=== PATIENT | female | born 1990 | race Caucasian/White ===

== ENCOUNTER 2019-07-05 12:49 | Observation (INO) ==
[2019-07-05] MEDS ORDERED: Ringers Solution, Lactated 1,000 ML IVC SCH (13:00)
[2019-07-05 15:53] LABS: Bilirubin,Urine Negative (Negative); Blood,Urine Negative (Negative); Clarity,Urine Cloudy (Clear); Color,Urine Yellow (Yellow); Glucose,Urine (UA) Normal (Normal); Ketones,Urine 15 mg/dL (Negative); Leukocyte Esterase,Urine Trace (Negative); Nitrite,Urine Negative (Negative); Protein,Urine Negative (Neg-Trace); Specific Gravity,Urine 1.012 (1.010-1.025); Urobilinogen,Urine Normal (Normal)
[2019-07-05 15:58] LABS: Bacteria,Urine None Seen per hpf (None-Few); Hyaline Casts,Urine None Seen per lpf (None-Few); RBC,Urine 0-3 per hpf (0-3); Squamous Epithelial Cell,Urine Many per lpf (None-Few)
[2019-07-05 16:06] LABS: Basophils % 0.3 %; Eosinophils % 0.3 %; Hematocrit 35.9 % (35.3-44.9); Hemoglobin 12.6 g/dL (11.5-15.4); Immature Granulocytes % 0.8 % (0-4); Lymphocytes # 1.4 K/mcL (0.6-4.6); Lymphocytes % 9.1 %; Mean Corpuscular HGB Conc 35.1 g/dL (31.6-35.5); Mean Corpuscular Hemoglobin 31.7 pg (28.0-33.3); Mean Corpuscular Volume 90.2 fL (83.0-100.0); Mean Platelet Volume 9.8 fL (9.4-12.4); Monocytes # 0.4 K/mcL (0.0-1.3); Monocytes % 2.4 %; Neutrophils # 12.9 K/mcL (1.6-8.9); Platelet Count 342 K/mcL (140-400); Red Blood Count 3.98 M/mcL (3.82-4.97); Segmented Neutrophils % 87.1 %; White Blood Count 14.8 K/mcL (4.3-11.1)
== END 2019-07-05 17:10 | disposition home or self-care (01) ==
LOC: 1NENULAB
PROVIDERS: ADMIT Registered Nurse; ATTEND Registered Nurse

== ENCOUNTER 2019-09-06 12:18 | Inpatient (IN) ==
[2019-09-06] MEDS ORDERED: Metoclopramide 10 MG/2 ML VIAL IVP ONE (12:30)
[2019-09-06] MEDS ORDERED: CeFAZolin 2,000 MG/50 ML BAG IVPB ONE (12:30)
[2019-09-06] MEDS ORDERED: Oxytocin 20 units/ LR 1000 mL 20 UNIT/1,000 ML BAG IVC ONE (12:30)
[2019-09-06] MEDS ORDERED: Ringers Solution, Lactated 1,000 ML IVC ONE (12:30)
[2019-09-06] MEDS ORDERED: Famotidine 20 MG/2 ML VIAL IVP ONE (12:30)
[2019-09-06] MEDS ORDERED: Ringers Solution, Lactated 1,000 ML IVC SCH (12:30)
[2019-09-06] MEDS ORDERED: Oxytocin 20 units/ LR 1000 mL 20 UNIT/1,000 ML BAG IVC SCH ×3 (12:30→17:13)
[2019-09-06] MEDS ORDERED: Albuterol 2.5 MG/3 ML NEBULIZER IH ONE (13:16)
[2019-09-06] MEDS ORDERED: Acetaminophen IV 1,000 MG/100 ML INFUS..BTL IVPB ONE (13:22)
[2019-09-06] MEDS ORDERED: Ondansetron 4 MG/2 ML VIAL IVP ONE (13:22)
[2019-09-06] MEDS ORDERED: *HR* HYDROmorphone PF 0.5 MG/0.5 ML SYRINGE IVP PRN (13:22)
[2019-09-06] MEDS ORDERED: *HR* OxyCODONE Immed Rel 5 MG TABLET PO PRN (13:22)
[2019-09-06 13:57] LABS: Basophils # 0.1 K/mcL (0.0-0.2); Basophils % 0.5 %; Eosinophils # 0.1 K/mcL (0.0-0.6); Eosinophils % 0.6 %; Hematocrit 39.9 % (35.3-44.9); Hemoglobin 13.6 g/dL (11.5-15.4); Immature Granulocytes % 0.5 % (0-4); Lymphocytes # 2.1 K/mcL (0.6-4.6); Lymphocytes % 19.1 %; Mean Corpuscular HGB Conc 34.1 g/dL (31.6-35.5); Mean Corpuscular Hemoglobin 30.7 pg (28.0-33.3); Mean Corpuscular Volume 90.1 fL (83.0-100.0); Mean Platelet Volume 11.2 fL (9.4-12.4); Monocytes # 0.4 K/mcL (0.0-1.3); Monocytes % 3.9 %; Neutrophils # 8.3 K/mcL (1.6-8.9); Platelet Count 197 K/mcL (140-400); Red Blood Count 4.43 M/mcL (3.82-4.97); Red Cell Distribution Width 14.4 % (11.5-14.5); Segmented Neutrophils % 75.4 %
[2019-09-06] MEDS ORDERED: *HR* Morphine Sulfate/PF 10 MG/10 ML AMPUL ONE (14:06)
[2019-09-06] MEDS ORDERED: *HR* Oxytocin 10 UNIT/ML VIAL IM ONE (14:07)
[2019-09-06] MEDS ORDERED: Ondansetron 4 MG/2 ML VIAL ONE (14:07)
[2019-09-06 14:08] LABS: Amphetamine Screen,Urine Negative ng/mL (Cutoff=1000); Barbiturate Screen,Urine Negative ng/mL (Cutoff=200); Benzodiazepines Screen,Urine Negative ng/mL (Cutoff=200); Cannabinoid Screen,Urine Positive ng/mL (Cutoff = 50); Cocaine Screen,Urine Negative ng/mL (Cutoff= 300); Opiate Screen,Urine Negative ng/mL (Cutoff=300); Phencyclidine Screen,Urine Negative ng/mL (Cutoff=25)
[2019-09-06] MEDS ORDERED: *HR* Propofol 200 MG/20 ML VIAL IVP ONE (14:45)
[2019-09-06] MEDS ORDERED: Ketamine *HR* 500 MG/10 ML MDV ONE (14:59)
[2019-09-06] MEDS ORDERED: Acetaminophen IV 1,000 MG/100 ML INFUS..BTL ONE (15:07)
[2019-09-06] MEDS ORDERED: Ketorolac 30 MG/ML VIAL ONE (15:09)
[2019-09-06] MEDS ORDERED: Rho Immune Globulin 1,500 UNIT SYRINGE IM ONE (17:13)
[2019-09-06] MEDS ORDERED: Ondansetron 4 MG/2 ML VIAL IVP PRN (17:13)
[2019-09-06] MEDS ORDERED: Metoclopramide 10 MG/2 ML VIAL IVP PRN (17:13)
[2019-09-06] MEDS ORDERED: Acetaminophen 325 MG TABLET PO PRN (17:13)
[2019-09-06] MEDS ORDERED: Sennosides 8.6 MG TABLET PO PRN (17:13)
[2019-09-06] MEDS ORDERED: Simethicone 80 MG TAB.CHEW PO PRN (17:13)
[2019-09-06] MEDS: Methadone Oral Concentrate 50 MG/5 ML UDC PO SCH (17:47)
[2019-09-06] MEDS: Ibuprofen 600 MG TABLET PO PRN (18:27)
[2019-09-06] MEDS: *HR* OxyCODONE/APAP 5/325 TABLET PO PRN (18:27)
[2019-09-06] MEDS: *HR* OxyCODONE Immed Rel 5 MG TABLET PO PRN (20:55)
[2019-09-07] MEDS: *HR* OxyCODONE/APAP 5/325 TABLET PO PRN ×5 (00:53→21:01)
[2019-09-07] MEDS: Ibuprofen 600 MG TABLET PO PRN ×3 (00:53→15:27)
[2019-09-07] MEDS: *HR* OxyCODONE Immed Rel 5 MG TABLET PO PRN (03:32)
[2019-09-07] MEDS: Prenatal Vit/FA 1 EACH TABLET PO SCH (07:26)
[2019-09-07] MEDS: Methadone Oral Concentrate 50 MG/5 ML UDC PO SCH ×2 (08:03→18:09)
[2019-09-07 09:11] LABS: Basophils % 0.3 %; Eosinophils # 0.1 K/mcL (0.0-0.6); Eosinophils % 0.5 %; Hematocrit 39.7 % (35.3-44.9); Immature Granulocytes % 0.4 % (0-4); Lymphocytes # 1.3 K/mcL (0.6-4.6); Lymphocytes % 9.6 %; Mean Corpuscular HGB Conc 32.7 g/dL (31.6-35.5); Mean Corpuscular Hemoglobin 30.2 pg (28.0-33.3); Mean Corpuscular Volume 92.3 fL (83.0-100.0); Mean Platelet Volume 10.8 fL (9.4-12.4); Monocytes # 0.5 K/mcL (0.0-1.3); Monocytes % 3.5 %; Neutrophils # 11.3 K/mcL (1.6-8.9); Platelet Count 182 K/mcL (140-400); Red Cell Distribution Width 14.6 % (11.5-14.5); Segmented Neutrophils % 85.7 %; White Blood Count 13.2 K/mcL (4.3-11.1)
[2019-09-07] MEDS ORDERED: Ipratropium/Albuterol Neb 3 ML IH PRN (09:19)
[2019-09-07] MEDS ORDERED: Methadone Oral Concentrate 50 MG/5 ML UDC PO SCH (18:00)
[2019-09-08] MEDS: *HR* OxyCODONE/APAP 5/325 TABLET PO PRN ×2 (01:13→06:06)
[2019-09-08] MEDS: Ibuprofen 600 MG TABLET PO PRN ×2 (01:13→08:06)
[2019-09-08 07:39] VITALS: BP 134/90
[2019-09-08] MEDS: Prenatal Vit/FA 1 EACH TABLET PO SCH (08:05)
[2019-09-08] MEDS ORDERED: Lidocaine 1% 20 ML MDV ID ONE (08:50)
[2019-09-08] MEDS ORDERED: Etonogestrel 68 MG IMPLANT IL ONE (08:50)
[2019-09-08] MEDS: Methadone Oral Concentrate 50 MG/5 ML UDC PO SCH (08:56)
== END 2019-09-08 09:05 | disposition home or self-care (01) | DRG 540 ==
LOC: 1NENULAB 12:18 → 1NENUOBS 17:14
PROVIDERS: ADMIT Obstetrics & Gynecology; ATTEND Obstetrics & Gynecology